=== PATIENT | female | born 1965 | race Caucasian/White ===

== ENCOUNTER → 2017-07-28 | Day surgery (SDC) | payer OTHER ==
--- NOTE | 2017-08-01 13:44 | PATH ---
Surgical Pathology Report Patient Name: ALLI MCCOLLUM [facility]. Rec. #: [id number] /Age/Gender: 1965 (Age: 52) / F Account: [id number] Location: Taken: 07/28/2017 Received: 07/28/2017 Reported: 08/01/2017 Physicians: Shannan Snider M.D. Specimen(s) Received A: RIGHT BREAST 6:00 5 CM FN (SITE#1) CORE BIOPSY B: RIGHT BREAST 6:00 5 CM FN (SITE#2) CORE BIOPSY Clinical History Rt breast bx Final Diagnosis A. breast, right, 6:00, 5 cm fn (site #1), core biopsy: Benign breast tissue showing fibrocystic changes including cystic apocrine metaplasia with usual ductal hyperplasia (UDH), small intraductal papilloma and columnar cell change with associated calcifications. B. breast, right, 6:00, 5 cm fn (site #2), core biopsy: Invasive ductal carcinoma, MODERATELY differentiated, measuring at least 3 mm in greatest dimension in this material. (See note) Note: The carcinoma is positive for E-Cadherin (performed at [place], [place]: [id number]), which supports ductal phenotype. Results of ER, DC, Her2 (IHC) & Ki-67 studies performed on block B at [place], [place] ([id number] ) are as follows: ER (clone [id number] mouse monoclonal antibody by [employer]): ~75 % nuclear staining with moderate intensity (Positive). DC (clone16 mouse monoclonal antibody by [employer]): 0 % nuclear staining (Negative). Her2 IHC (EP3 from [employer], formerly known as [id number], using [employer] Polymer Refine detection kit): 2+ (Equivocal). Ki-67: ~10% (low proliferative index). Note: Her2 FISH studies are being performed and the results will be reported in an addendum. Positive and negative controls (internal if applicable) show appropriate results. Formalin fixation and cold ischemic times are within current ASCO/CAP recommendations for ER, DC and Her2 testing. Electronically Signed Otilia Nixon M.D. Addendum Reported: 08/08/2017 Addendum Diagnosis Her2 Analysis by FISH performed and interpreted at [facility] ([id number]) shows the following: Her2: 5.4 CEP17: 2.4 Ratio: 2.3 Interpretation: POSITIVE See [facility] report for additional details ([id number]) Otilia Nixon M.D. Gross Description A. Received in formalin labeled "right breast biopsy 6:00, 5 cmfn #1" is a 1.8 x 1.0 x 0.2 cm aggregate of multiple mayer-yellow, irregular to cylindrical portions of fibroadipose tissue. The formalin is filtered and the specimen is entirely submitted in one cassette. Time to formalin fixation: 10 minutes Total formalin fixation time: Approximately 8 hours. B. Received in formalin labeled "right breast biopsy 6:00, 5 cmfn #2" is a 1.6 x 1.0 x 0.2 cm aggregate of mayer-yellow, irregular to cylindrical portions of fibroadipose tissue. The formalin is filtered and the specimen is entirely submitted in one cassette. Time to formalin fixation: 2 minutes Total formalin fixation time: Approximately 8 hours. 07/28/2017 saudi07/28/2017
== END | disposition home or self-care (01) ==
LOC: FRADUS-SUR 08:33
PROVIDERS: ATTEND Obstetrics & Gynecology
PROC: 0HBT3ZX Excision of Right Breast, Percutaneous Approach, Diagnostic (ICD-10-PCS; principal; 2017-07-28)
DX: N63.10 Unspecified lump in the right breast, unspecified quadrant (principal); C50.811 Malignant neoplasm of overlapping sites of right female breast; Z17.0 Estrogen receptor positive status [ER+]; D24.1 Benign neoplasm of right breast; N60.11 Diffuse cystic mastopathy of right breast; N60.81 Other benign mammary dysplasias of right breast
CPT/HCPCS: 19083; 19084; 77065-TC; 88305-TC